=== PATIENT | male | born 1970 | race Caucasian/White ===

== ENCOUNTER → 2017-06-20 | Outpatient (CLI) | payer OTHER ==
--- NOTE | 2017-06-20 23:36 | MR ---
EXAMINATION TYPE: MR cspine/lspine wo con DATE OF EXAM: 06/20/2017 COMPARISON: NONE HISTORY: Neck pain and back pain. Bilateral leg radiculopathy TECHNIQUE: Multiplanar, multisequence imaging of the lumbar spine is performed without IV contrast. M ultiplanar multiecho imaging of the cervical spine was performed without contrast. FINDINGS: The cervical vertebra are fairly normal alignment. There is narrowing of C5-6 and C6-7 disc spaces wi th decreased signal in the discs. There are posterior mild disc herniations at C4-5 C5-6 C6-7 without significant impingement on the cervical spinal cord. C6-7 disc herniation is slightly to the right s roc. Cervical spinal cord has normal signal pattern. There is no evidence of edema. Canal measures 9 mm at C6-7. The brainstem is intact. There is no sign of a fracture. There is a very small posterior disc bulge at C7-T1. There is no cervical paraspinal mass. There is a small posterior C3-4 disc bulge as well. The lumbar vertebra have normal alignment. There is some narrowing and decreased signal in the disks from L3 to S1. There is posterior disc herniation at L5-S1 into the spinal canal and elevating the po sterior longitudinal ligament along the posterior aspect of S1 vertebra. There is extruded disc poste rior to S1 vertebral body. There are anterior and posterior disc herniations from L3 to S1. There is no compression fracture. Posterior elements are intact. There is mild bilateral neural foraminal narr owing at L4-5 and L5-S1 due to the disc space narrowing and facet arthropathy. There is no lumbar paraspinal mass. Visualized sacroiliac joints appear intact. IMPRESSION: Multilevel cervical spondylosis. Mild posterior disc herniations from C4 to T1. No significant spinal stenosis. There is developmentally adequate spinal canal. Spondylotic changes in the lower lumbar spine as above. Posterior disc herniations from L3 to S1 and larger at L5-S1. Extruded disc at L5-S1. No spinal stenosis. Mild bilateral neural foraminal impingem ent at L5-S1 and L4-5 due to facet arthropathy and disc space narrowing.
== END | disposition home or self-care (01) ==
LOC: RADMRIMAIN 16:47
PROVIDERS: ATTEND Physician Assistant Medical
DX: M48.07 Spinal stenosis, lumbosacral region (principal); M51.27 Other intervertebral disc displacement, lumbosacral region; M50.23 Other cervical disc displacement, cervicothoracic region; M47.812 Spondylosis without myelopathy or radiculopathy, cervical region; M47.816 Spondylosis without myelopathy or radiculopathy, lumbar region; M12.88 Other specific arthropathies, not elsewhere classified, other specified site
CPT/HCPCS: 72141; 72148